=== PATIENT | female | born 1985 | race Caucasian/White ===

== ENCOUNTER 2017-05-19 11:54 | Outpatient (CLI) | payer BC ==
[~2017-05-19] VITALS: Ht 167.6 cm; Wt 86.4 kg
[2017-05-19 12:04] VITALS: BP 127/85
== END 2017-05-19 12:37 | disposition home or self-care (01) ==
LOC: LDOP 11:54
PROVIDERS: ATTEND Obstetrics & Gynecology Gynecology
DX: O36.8130 Decreased fetal movements, third trimester, not applicable or unspecified (principal); O43.123 Velamentous insertion of umbilical cord, third trimester; Z3A.38 38 weeks gestation of pregnancy
CPT/HCPCS: 59025; 99201; G0463

== ENCOUNTER 2017-05-26 09:33 | Inpatient (IN) | payer BC ==
[~2017-05-26] VITALS: Ht 167.6 cm; Wt 88.6 kg
[2017-05-26] MEDS ORDERED: LACTATED RINGERS 1,000 ML IV SCH (09:49)
[2017-05-26] MEDS ORDERED: OXYTOCIN 30U/ 0.9% NaCL 500ML 500 ML IV ONE (09:49)
[2017-05-26] MEDS ORDERED: D5%-LACTATED RINGERS 1,000 ML IV SCH (09:49)
[2017-05-26] MEDS ORDERED: ONDANSETRON 2MG/ML, 2ML IVPush PRN (10:00)
[2017-05-26] MEDS ORDERED: SODIUM CHLORIDE FLUSH 10ML SYR IVF PRN (10:00)
[2017-05-26] MEDS ORDERED: FENTANYL PF 100 MCG/2ML IV PRN (10:00)
[2017-05-26] MEDS ORDERED: FENTANYL PF 100 MCG/2ML IVPush PRN (10:00)
[2017-05-26] MEDS ORDERED: TERBUTALINE 1 MG/ML, 1ML SQ PRN (10:00)
[2017-05-26] MEDS ORDERED: MISOPROSTOL 200 MCG TABLET ONE (10:59)
[2017-05-26] MEDS ORDERED: LIDOCAINE 1%, 20ML ONE (11:00)
[2017-05-26 11:21] LABS: DIFF TOTAL CELLS COUNTED 100 CELL DIFF
[2017-05-26 11:23] LABS: VERIFY COUNTS? YES
[2017-05-26] MEDS ORDERED: NEWBORN KIT ONE (12:02)
[2017-05-26] MEDS ORDERED: FENTANYL PF 100 MCG/2ML ONE (12:12)
[2017-05-26] MEDS ORDERED: IBUPROFEN 600 MG TABLET ONE (14:24)
[2017-05-26] MEDS: IBUPROFEN 600 MG TABLET PO PRN (14:30)
[2017-05-26] MEDS: OXYTOCIN 30U/ 0.9% NaCL 500ML 500 ML IV SCH (14:43)
[2017-05-26] MEDS ORDERED: DIPH,PERTUSS(ACELL),TET VAC/PF NC IM-VACC PRN (15:00)
[2017-05-26] MEDS ORDERED: MISOPROSTOL 200 MCG TABLET PR PRN (15:00)
[2017-05-26] MEDS ORDERED: DOCUSATE 100 MG CAPSULE PO PRN (15:00)
[2017-05-26] MEDS ORDERED: OXYcodone/APAP 5/325MG TABLET PO PRN ×2 (15:00)
[2017-05-26 16:25] VITALS: BP 128/86
[2017-05-26 20:00] VITALS: BP 130/85
[2017-05-27 00:40] VITALS: BP 109/64
[2017-05-27] MEDS: OXYTOCIN 30U/ 0.9% NaCL 500ML 500 ML IV SCH ×2 (00:43→10:43)
[2017-05-27] MEDS: IBUPROFEN 600 MG TABLET PO PRN (01:25)
[2017-05-27 08:08] VITALS: BP 138/82
[2017-05-27] MEDS ORDERED: IBUP-1222 PO (08:22)
[2017-05-27] MEDS ORDERED: PRENATAL VIT/IRON/FA 1 EACH TABLET PO SCH (09:00)
[2017-05-27 11:45] VITALS: BP 111/75
== END 2017-05-27 14:55 | disposition home or self-care (01) | DRG 775 ==
LOC: LDOP 09:33 → LDIP 09:48 → 2NW 16:08 → EDSTATUS 06-03 09:33
PROVIDERS: ADMIT Obstetrics & Gynecology Gynecology; ATTEND Obstetrics & Gynecology Gynecology
PROC: 10E0XZZ Delivery of Products of Conception, External Approach (ICD-10-PCS; principal; 2017-05-26)
DX: O43.123 Velamentous insertion of umbilical cord, third trimester (principal); O43.193 Other malformation of placenta, third trimester; Z37.0 Single live birth; Z3A.38 38 weeks gestation of pregnancy; Z88.0 Allergy status to penicillin
CPT/HCPCS: 36415; 85025; 86850; 86900; J3010